=== PATIENT | female | born 1950 | race African-American/Black ===

== ENCOUNTER 2020-05-10 15:03 | Observation (INO) ==
[2020-05-10 16:52] LABS: Basophils # 0.1 10*3/uL (0.0-0.2); Basophils % 0.5 % (0.0-0.8); Eosinophils # 0.5 10*3/uL (0.0-0.87); Eosinophils % 4.8 % (0.00-10.9); Hematocrit 37.4 VOL% (35.7-47.0); Hemoglobin 12.5 GM/DL (12.0-16.0); Immature Granulocytes % 0.3 %; Immature Granulocytes Absolute 0.03 #; Lymphocytes # 1.9 10*3/uL (1.4-4.0); Lymphocytes % 18.6 % (21.3-54.2); Mean Corpuscular HGB Conc 33.4 GM/DL (32-36); Mean Platelet Volume 11.4 FL (9.6-12.0); Neutrophils % 65.8 % (38.7-73.9); Platelet Count 283 T/CUMM (130-400); Red Blood Count 4.45 MC/CUMM (3.8-5.5); Red Cell Distribution Width 14.3 % (9.3-17.3); White Blood Count 10.1 T/CUMM (4-12)
[2020-05-10 16:57] LABS: Alanine Aminotransferase 27 U/L (13-56); Alkaline Phosphatase 131 U/L (45-117); Aspartate Amino Transferase 22 U/L (0-37); Bilirubin,Total < 0.39 MG/DL (0.2-1.0); Blood Urea Nitrogen 21 MG/DL (7-18); Calcium 9.5 MG/DL (8.5-10.1); Estimated Glom Filtration Rate 44 ML/MIN; Glucose 95 MG/DL (74-106); Osmolality,Calculated 277.7 MOS/KG (273-304); Total Protein 8.6 G/DL (6.4-8.3)
[2020-05-10] MEDS ORDERED: LORazepam 2 MG/1 ML VIAL IV STA (17:38)
[2020-05-10] MEDS ORDERED: levETIRAcetam 500 MG/5 ML VIAL IV ONE (18:31)
[2020-05-10 18:36] LABS: Apearance,Urine CLEAR (Clear); Bilirubin,Urine Negative (Negative); Blood, Urine Negative (Negative); Glucose,Urine (UA) Negative (Negative); Ketones,Urine Negative (Negative); Mucus,Urine Occasional /LPF (Occasional); Nitrite,Urine Negative (Negative); Protein,Urine Negative; RBC,Urine 2 /HPF (0-4); Squamous Epithelial Cell,Urine Occasional /HPF (0-10); Urine Color Yellow (Yellow); Urine Specific Gravity 1.012 (1.001-1.035); Urine Urobilinogen < 2.0 EU/DL (0.2-1.0); WBC,Urine 44 /HPF (0-6)
[2020-05-10 18:41] LABS: Barbiturates Screen,Urine Negative (Negative); Benzodiazepines Screen,Urine Negative (Negative); Cannabinoid Screen,Urine Negative (Negative); Opiate Screen,Urine Negative (Negative); Phencyclidine Screen,Urine Negative (Negative)
[2020-05-10] MEDS ORDERED: SULFAMETHOX/TRIMETHOPRIM 800-160 MG TABLET PO STA (19:01)
[2020-05-10] MEDS ORDERED: ONDANSETRON 4 MG/2 ML VIAL IV PRN (19:29)
[2020-05-10] MEDS ORDERED: ASPIRIN EC 325 MG TABLET PO PRN (19:35)
[2020-05-10] MEDS ORDERED: CLOPIDOGREL 75 MG TABLET PO STA (19:36)
[2020-05-10] MEDS ORDERED: ENOXAPARIN 40 MG/0.4 ML SYRINGE SUBCUT SCH (21:00)
[2020-05-10] MEDS: levETIRAcetam 500 MG TABLET PO SCH (21:00)
[2020-05-10] MEDS: SODIUM CHLORIDE 0.9% 1,000 ML IV SCH (22:39)
[2020-05-10] MEDS: ASCORBIC ACID 500 MG TABLET PO SCH (22:39)
[2020-05-11] MEDS: SODIUM CHLORIDE 0.9% 1,000 ML IV SCH ×3 (04:35→16:25)
[2020-05-11 05:55] LABS: Basophils # 0.1 10*3/uL (0.0-0.2); Basophils % 0.6 % (0.0-0.8); Eosinophils # 0.5 10*3/uL (0.0-0.87); Eosinophils % 5.6 % (0.00-10.9); Hematocrit 35.4 VOL% (35.7-47.0); Hemoglobin 11.7 GM/DL (12.0-16.0); Immature Granulocytes % 0.4 %; Immature Granulocytes Absolute 0.03 #; Lymphocytes # 2.3 10*3/uL (1.4-4.0); Mean Corpuscular HGB Conc 33.1 GM/DL (32-36); Mean Corpuscular Volume 85.9 FL (87-102); Monocytes % 12.1 % (1.7-12.7); Neutrophils % 54.3 % (38.7-73.9); Platelet Count 259 T/CUMM (130-400); Red Blood Count 4.12 MC/CUMM (3.8-5.5); Red Cell Distribution Width 14.4 % (9.3-17.3); White Blood Count 8.3 T/CUMM (4-12)
[2020-05-11 06:15] LABS: Calcium 8.8 MG/DL (8.5-10.1); Osmolality,Calculated 283.1 MOS/KG (273-304); Risk Ratio 2.07; VLDL CHOLESTEROL 17.6 MG/DL
[2020-05-11] MEDS: SULFAMETHOX/TRIMETHOPRIM 800-160 MG TABLET PO SCH (08:14)
[2020-05-11] MEDS: levETIRAcetam 500 MG TABLET PO SCH ×2 (08:14→21:53)
[2020-05-11] MEDS: ROSUVASTATIN 10 MG TABLET PO SCH (08:14)
[2020-05-11] MEDS: amLODIPine 10 MG TABLET PO SCH (08:14)
[2020-05-11] MEDS: FOLIC ACID 1 MG TABLET PO SCH (08:14)
[2020-05-11] MEDS: CHOLECALCIFEROL 1,000 UNIT TABLET PO SCH (08:15)
[2020-05-11] MEDS: ASCORBIC ACID 500 MG TABLET PO SCH (21:53)
[2020-05-12] MEDS: SODIUM CHLORIDE 0.9% 1,000 ML IV SCH ×2 (04:51→08:51)
[2020-05-12 08:14] LABS: Calcium 8.3 MG/DL (8.5-10.1); Osmolality,Calculated 281.3 MOS/KG (273-304)
[2020-05-12] MEDS: CHOLECALCIFEROL 1,000 UNIT TABLET PO SCH (08:50)
[2020-05-12] MEDS: SULFAMETHOX/TRIMETHOPRIM 800-160 MG TABLET PO SCH (08:50)
[2020-05-12] MEDS: FOLIC ACID 1 MG TABLET PO SCH (08:50)
[2020-05-12] MEDS: levETIRAcetam 500 MG TABLET PO SCH (08:50)
[2020-05-12] MEDS: ROSUVASTATIN 10 MG TABLET PO SCH (08:50)
[2020-05-12] MEDS: amLODIPine 10 MG TABLET PO SCH (08:50)
[2020-05-12] MEDS ORDERED: CLOPIDOGREL 75 MG TABLET PO SCH (09:00)
[2020-05-12] MEDS ORDERED: ROSUVASTATIN 20 MG TABLET PO SCH (10:10)
[2020-05-12 12:07] VITALS: BP 133/60
[2020-05-13] MEDS ORDERED: ASPIRIN EC 81 MG TABLET PO SCH (09:00)
== END 2020-05-12 12:30 | disposition home or self-care (01) ==
LOC: N.EDINP 15:03 → N.ED 15:03 → N.EDINP 21:21 → N.TELES 22:32
PROVIDERS: ADMIT Family Medicine; ATTEND Family Medicine

== ENCOUNTER 2020-07-27 06:26 | Observation (INO) ==
[2020-07-27] MEDS ORDERED: LORazepam 2 MG/1 ML VIAL IV STA ×2 (06:38→07:57)
[2020-07-27 06:55] LABS: Basophils # 0.1 10*3/uL (0.0-0.2); Basophils % 0.8 % (0.0-0.8); Eosinophils # 0.5 10*3/uL (0.0-0.87); Eosinophils % 6.3 % (0.00-10.9); Hemoglobin 12.5 GM/DL (12.0-16.0); Immature Granulocytes % 0.3 %; Immature Granulocytes Absolute 0.02 #; Lymphocytes # 3.1 10*3/uL (1.4-4.0); Lymphocytes % 39.9 % (21.3-54.2); Mean Corpuscular HGB Conc 33.8 GM/DL (32-36); Mean Corpuscular Volume 85.5 FL (87-102); Mean Platelet Volume 11.1 FL (9.6-12.0); Monocytes % 15.7 % (1.7-12.7); Platelet Count 217 T/CUMM (130-400); Red Blood Count 4.33 MC/CUMM (3.8-5.5); Red Cell Distribution Width 15.3 % (9.3-17.3); White Blood Count 7.8 T/CUMM (4-12)
[2020-07-27 07:18] LABS: Eosinophils 8 % (0-10); Lymphocytes 34 % (20-55); Platelet Estimate Adequate; Segmented Neutrophils 44 % (50-85); Total Cells Counted 100
[2020-07-27 07:19] LABS: Hypochromasia 1+; Microcytosis 1+
[2020-07-27 07:24] LABS: Albumin 3.6 G/DL (3.4-5.0); Bilirubin,Total 0.7 MG/DL (0.2-1.0); Calcium 8.8 MG/DL (8.5-10.1); Osmolality,Calculated 285.1 MOS/KG (273-304)
[2020-07-27] MEDS ORDERED: MORPHINE 4 MG/1 ML VIAL IV PRN (09:13)
[2020-07-27] MEDS ORDERED: hydrALAZINE 20 MG/1 ML VIAL IV PRN (09:13)
[2020-07-27] MEDS ORDERED: GLUCAGON 1 MG VIAL IM PRN (09:13)
[2020-07-27] MEDS ORDERED: DOCUSATE SODIUM 100 MG CAPSULE PO PRN (09:13)
[2020-07-27] MEDS ORDERED: DEXTROSE 50% 25 GM/50 ML VIAL IV PRN (09:13)
[2020-07-27] MEDS ORDERED: ONDANSETRON 4 MG/2 ML VIAL IV PRN (09:13)
[2020-07-27] MEDS ORDERED: BISACODYL 5 MG TABLET PO PRN (09:13)
[2020-07-27] MEDS ORDERED: ACETAMINOPHEN 325 MG TABLET PO PRN (09:13)
[2020-07-27] MEDS ORDERED: LORazepam 2 MG/1 ML VIAL IV PRN (09:19)
[2020-07-27] MEDS: SODIUM CHLORIDE 0.9% 1,000 ML IV SCH ×3 (11:00→20:50)
[2020-07-27] MEDS: ENOXAPARIN 40 MG/0.4 ML SYRINGE SUBCUT SCH (15:45)
[2020-07-27] MEDS: LOSARTAN 25 MG TABLET PO SCH (20:50)
[2020-07-27] MEDS: DIVALPROEX 500 MG TABLET PO SCH (20:50)
[2020-07-27] MEDS ORDERED: ROSUVASTATIN 20 MG TABLET PO SCH (21:00)
[2020-07-28] MEDS: SODIUM CHLORIDE 0.9% 1,000 ML IV SCH ×4 (04:00→22:10)
[2020-07-28 05:33] LABS: Basophils % 0.6 % (0.0-0.8); Eosinophils # 0.4 10*3/uL (0.0-0.87); Eosinophils % 5.6 % (0.00-10.9); Hematocrit 33.1 VOL% (35.7-47.0); Hemoglobin 11.1 GM/DL (12.0-16.0); Immature Granulocytes % 0.3 %; Immature Granulocytes Absolute 0.02 #; Lymphocytes # 2.1 10*3/uL (1.4-4.0); Lymphocytes % 30.4 % (21.3-54.2); Mean Corpuscular HGB Conc 33.5 GM/DL (32-36); Mean Corpuscular Volume 86.4 FL (87-102); Mean Platelet Volume 11.4 FL (9.6-12.0); Monocytes % 16.9 % (1.7-12.7); Neutrophils % 46.2 % (38.7-73.9); Platelet Count 186 T/CUMM (130-400); Red Blood Count 3.83 MC/CUMM (3.8-5.5); Red Cell Distribution Width 15.5 % (9.3-17.3); White Blood Count 6.8 T/CUMM (4-12)
[2020-07-28 06:00] LABS: Albumin 3.1 G/DL (3.4-5.0); Bilirubin,Total 0.8 MG/DL (0.2-1.0); Calcium 8.4 MG/DL (8.5-10.1); Osmolality,Calculated 284.1 MOS/KG (273-304); Risk Ratio 2.58; Thyroid Stimulating Hormone 3.76 uIU/ml (0.358-3.74); Total Protein 7.1 G/DL (6.4-8.3); VLDL CHOLESTEROL 19.2 MG/DL
[2020-07-28 06:08] LABS: Eosinophils 3 % (0-10); Lymphocytes 35 % (20-55); Platelet Estimate Normal; Segmented Neutrophils 44 % (50-85); Total Cells Counted 100
[2020-07-28] MEDS: CLOPIDOGREL 75 MG TABLET PO SCH (08:22)
[2020-07-28] MEDS: DIVALPROEX 500 MG TABLET PO SCH ×2 (08:22→20:51)
[2020-07-28] MEDS: amLODIPine 10 MG TABLET PO SCH (08:22)
[2020-07-28] MEDS: PANTOPRAZOLE 40 MG TABLET PO SCH (08:23)
[2020-07-28] MEDS: ASPIRIN CHEW 81 MG TABLET PO SCH (08:23)
[2020-07-28] MEDS: ENOXAPARIN 40 MG/0.4 ML SYRINGE SUBCUT SCH (10:31)
[2020-07-28] MEDS: OXcarbazepine 300 MG TABLET PO SCH ×2 (10:31→20:51)
[2020-07-28] MEDS: LOSARTAN 25 MG TABLET PO SCH (20:51)
[2020-07-28] MEDS ORDERED: MELATONIN 3 MG TABLET PO SCH (21:00)
[2020-07-29 05:50] LABS: Basophils # 0.1 10*3/uL (0.0-0.2); Basophils % 0.8 % (0.0-0.8); Eosinophils # 0.7 10*3/uL (0.0-0.87); Hematocrit 30.5 VOL% (35.7-47.0); Hemoglobin 10.2 GM/DL (12.0-16.0); Immature Granulocytes % 0.4 %; Immature Granulocytes Absolute 0.03 #; Lymphocytes # 1.8 10*3/uL (1.4-4.0); Lymphocytes % 24.4 % (21.3-54.2); Mean Corpuscular HGB Conc 33.4 GM/DL (32-36); Mean Corpuscular Volume 86.6 FL (87-102); Monocytes % 14.5 % (1.7-12.7); Neutrophils % 50.9 % (38.7-73.9); Platelet Count 161 T/CUMM (130-400); Red Blood Count 3.52 MC/CUMM (3.8-5.5); Red Cell Distribution Width 15.5 % (9.3-17.3); White Blood Count 7.4 T/CUMM (4-12)
[2020-07-29 06:08] LABS: Albumin 2.8 G/DL (3.4-5.0); Bilirubin,Total 0.4 MG/DL (0.2-1.0); Osmolality,Calculated 288.1 MOS/KG (273-304); Total Protein 6.4 G/DL (6.4-8.3)
[2020-07-29] MEDS: CLOPIDOGREL 75 MG TABLET PO SCH (09:54)
[2020-07-29] MEDS: ASPIRIN CHEW 81 MG TABLET PO SCH (09:54)
[2020-07-29] MEDS: DIVALPROEX 500 MG TABLET PO SCH (09:54)
[2020-07-29] MEDS: amLODIPine 10 MG TABLET PO SCH (09:54)
[2020-07-29] MEDS: PANTOPRAZOLE 40 MG TABLET PO SCH (09:55)
[2020-07-29] MEDS: OXcarbazepine 300 MG TABLET PO SCH (09:55)
[2020-07-29] MEDS: ENOXAPARIN 40 MG/0.4 ML SYRINGE SUBCUT SCH (09:55)
[2020-07-29 15:44] VITALS: BP 145/75
== END 2020-07-29 16:15 | disposition home or self-care (01) ==
LOC: N.EDINP 06:26 → N.ED 06:26 → N.3E 14:18
PROVIDERS: ADMIT Internal Medicine; ATTEND Internal Medicine

== ENCOUNTER 2020-08-15 06:39 | Inpatient (IN) ==
[2020-08-09 11:27] LABS: Basophils % 0.5 % (0.0-0.8); Eosinophils # 0.6 10*3/uL (0.0-0.87); Eosinophils % 7.9 % (0.00-10.9); Hematocrit 34.4 VOL% (35.7-47.0); Hemoglobin 11.6 GM/DL (12.0-16.0); Immature Granulocytes % 0.4 %; Immature Granulocytes Absolute 0.03 #; Lymphocytes # 1.3 10*3/uL (1.4-4.0); Lymphocytes % 17.3 % (21.3-54.2); Mean Corpuscular HGB Conc 33.7 GM/DL (32-36); Mean Platelet Volume 11.7 FL (9.6-12.0); Monocytes % 19.3 % (1.7-12.7); Neutrophils % 54.6 % (38.7-73.9); Platelet Count 234 T/CUMM (130-400); Red Cell Distribution Width 16.1 % (9.3-17.3); White Blood Count 7.6 T/CUMM (4-12)
[2020-08-09 11:36] LABS: Calcium 8.5 MG/DL (8.5-10.1); Osmolality,Calculated 279.8 MOS/KG (273-304)
[2020-08-09 11:53] LABS: Band Neutrophils 1 % (0-10); Eosinophils 7 % (0-10); Hypochromasia 1+; Lymphocytes 14 % (20-55); Microcytosis Slight; Platelet Estimate Adequate; Segmented Neutrophils 66 % (50-85); Total Cells Counted 100
[~2020-08-15 06:39] MED LIST: ceFAZolin 1,000 MG in SYRINGE 1 EACH IV ONE
[2020-08-15] MEDS ORDERED: DIAZEPAM 5 MG TABLET PO ONE (06:50)
[2020-08-15] MEDS ORDERED: FAMOTIDINE 20 MG TABLET PO ONE (06:50)
[2020-08-15 07:28] LABS: PT Patient Result 10.9 SECS (9.8-11.9)
[2020-08-15] MEDS ORDERED: LACTATED RINGERS 1,000 ML IV SCH (08:00)
[2020-08-15] MEDS ORDERED: fentaNYL 100 MCG/2 ML VIAL ONE ×2 (08:28→10:41)
[2020-08-15] MEDS ORDERED: HEPARIN 5,000 UNIT/1 ML VIAL ONE (08:29)
[2020-08-15] MEDS ORDERED: LIDOCAINE 1% 20 ML VIAL ONE (08:30)
[2020-08-15] MEDS ORDERED: PHENYLEPHRINE 10 MG/1 ML VIAL IV ONE (08:34)
[2020-08-15] MEDS ORDERED: ROPIVACAINE 0.5% 30 ML VIAL ONE (08:40)
[2020-08-15] MEDS ORDERED: LIDOCAINE 2% 5 ML VIAL ONE (10:17)
[2020-08-15] MEDS ORDERED: ONDANSETRON 4 MG/2 ML VIAL ONE (10:17)
[2020-08-15] MEDS ORDERED: DEXAMETHASONE 4 MG/1 ML VIAL ONE (10:17)
[2020-08-15] MEDS ORDERED: SODIUM CHLORIDE 0.9% 1,000 ML IV ONE (10:17)
[2020-08-15] MEDS ORDERED: SODIUM CHLORIDE 0.9% 100 ML IV ONE (10:17)
[2020-08-15] MEDS ORDERED: propofoL 200 MG/20 ML VIAL IV ONE (10:17)
[2020-08-15] MEDS ORDERED: HEPARIN 10,000 UNIT/10 ML VIAL ONE (10:17)
[2020-08-15] MEDS ORDERED: ROCURONIUM 50 MG/5 ML VIAL IV ONE (10:17)
[2020-08-15] MEDS ORDERED: SUCCINYLCHOLINE 200 MG/10 ML VIAL ONE (10:17)
[2020-08-15] MEDS ORDERED: ETOMIDATE 40 MG/20 ML VIAL IV ONE (10:17)
[2020-08-15] MEDS ORDERED: PHENYLEPHRINE 1 MG/10 ML SYRINGE IV ONE (10:18)
[2020-08-15] MEDS ORDERED: NEOSTIGMINE 10 MG/10 ML VIAL ONE (10:33)
[2020-08-15] MEDS ORDERED: PROTAMINE SULFATE 50 MG/5 ML VIAL IV ONE (10:33)
[2020-08-15] MEDS ORDERED: GLYCOPYRROLATE 0.4 MG/2 ML VIAL ONE (10:33)
[2020-08-15] MEDS ORDERED: SEVOFLURANE 1 UNIT/15 MINUTE INH ONE (10:37)
[2020-08-15] MEDS ORDERED: PROMETHAZINE 25 MG/1 ML VIAL IM PRN (10:53)
[2020-08-15] MEDS ORDERED: ONDANSETRON 4 MG/2 ML VIAL IV PRN (10:53)
[2020-08-15] MEDS ORDERED: GLUCAGON 1 MG VIAL IM PRN (10:53)
[2020-08-15] MEDS ORDERED: HYDROmorphone 2 MG/1 ML VIAL IV PRN (10:53)
[2020-08-15] MEDS ORDERED: NALOXONE 0.4 MG/ML VIAL IV PRN (10:53)
[2020-08-15] MEDS ORDERED: oxyCODONE/ACETAMINOPHEN 5-325 MG TABLET PO PRN ×2 (10:53)
[2020-08-15] MEDS ORDERED: DEXTROSE 50% 25 GM/50 ML VIAL IV PRN (10:53)
[2020-08-15] MEDS ORDERED: PHENYLEPHRINE DRIP 40 MG/250 ML PREMIX IV SCH (11:00)
[2020-08-15] MEDS ORDERED: NITROPRUSSIDE 100 MG in DEXTROSE 5% 250 ML IV SCH (11:00)
[2020-08-15 12:25] VITALS: BP 117/42
[2020-08-15] MEDS: LACTATED RINGERS 1,000 ML IV SCH ×2 (12:36→16:00)
[2020-08-15] MEDS: HYDROmorphone 2 MG/1 ML VIAL IV PRN ×2 (12:47→22:35)
[2020-08-15] MEDS: OXcarbazepine 300 MG TABLET PO SCH (20:40)
[2020-08-15] MEDS: DIVALPROEX 500 MG TABLET PO SCH (20:40)
[2020-08-15] MEDS: levETIRAcetam 500 MG TABLET PO SCH (20:41)
[2020-08-15] MEDS ORDERED: LOSARTAN 25 MG TABLET PO SCH (21:00)
[2020-08-15] MEDS ORDERED: MELATONIN 3 MG TABLET PO SCH (21:00)
[2020-08-16] MEDS: LACTATED RINGERS 1,000 ML IV SCH (03:00)
[2020-08-16] MEDS: DIVALPROEX 500 MG TABLET PO SCH (08:08)
[2020-08-16] MEDS: levETIRAcetam 500 MG TABLET PO SCH (08:08)
[2020-08-16] MEDS: OXcarbazepine 300 MG TABLET PO SCH (08:20)
[2020-08-16] MEDS ORDERED: ASPIRIN CHEW 81 MG TABLET PO SCH (09:00)
[2020-08-16] MEDS ORDERED: ASPIRIN EC 81 MG TABLET PO SCH (09:00)
[2020-08-16] MEDS ORDERED: CLOPIDOGREL 75 MG TABLET PO SCH ×2 (09:00)
[2020-08-16] MEDS ORDERED: ROSUVASTATIN 20 MG TABLET PO SCH (09:00)
== END 2020-08-16 09:58 | disposition home or self-care (01) | DRG 38 ==
LOC: N.OR 06:39 → N.SDSINP 06:41 → EDSTATUS 09:30 → N.SDSINP 10:53 → N.ICU 12:02
PROVIDERS: ADMIT Surgery; ATTEND Surgery

== ENCOUNTER 2022-01-01 12:58 | Observation (INO) ==
[2022-01-01] MEDS ORDERED: SODIUM CHLORIDE 0.9% 1,000 ML IV STA (13:49)
[2022-01-01 14:59] LABS: Basophils % 0.4 % (0.0-0.8); Eosinophils # 0.6 10*3/uL (0.0-0.87); Eosinophils % 6.8 % (0.00-10.9); Hematocrit 33.2 VOL% (35.7-47.0); Hemoglobin 10.5 GM/DL (12.0-16.0); Immature Granulocytes % 1.5 %; Immature Granulocytes Absolute 0.14 #; Lymphocytes # 1.2 10*3/uL (1.4-4.0); Lymphocytes % 12.9 % (21.3-54.2); Mean Corpuscular HGB Conc 31.6 GM/DL (32-36); Mean Corpuscular Volume 93.3 FL (87-102); Mean Platelet Volume 11.5 FL (9.6-12.0); Neutrophils % 58.4 % (38.7-73.9); Platelet Count 291 T/CUMM (130-400); Red Blood Count 3.56 MC/CUMM (3.8-5.5); White Blood Count 9.2 T/CUMM (4-12)
[2022-01-01 15:12] LABS: Hyaline Casts,Urine 7 /LPF (0-3); RBC,Urine 1 /HPF (0-4); Squamous Epithelial Cell,Urine Occasional /HPF (0-10); Urine Appearance Clear (Clear); Urine Color Yellow (Yellow)
[2022-01-01 15:13] LABS: Bilirubin,Urine Moderate mg/dL (Negative); Blood, Urine Negative (Negative); Glucose,Urine (UA) Negative (Negative); Ketones,Urine Negative (Negative); Nitrite,Urine Negative (Negative); Protein,Urine 30 mg/dL (Negative); Urine Specific Gravity 1.015 (1.001-1.035); Urine pH 6.5 (4.5-8.0)
[2022-01-01 15:41] LABS: Albumin 2.5 G/DL (3.4-5.0); Bilirubin,Total 0.4 MG/DL (0.20-1.00); Calcium 9.1 MG/DL (8.5-10.1); Potassium 4.5 MMOL/L (3.5-5.1); Total Protein 7.1 G/DL (6.4-8.2)
[2022-01-01 15:46] LABS: Eosinophils 13 % (0-10); Lymphocytes 12 % (20-55); Metamyelocytes 1 %; Segmented Neutrophils 57 % (50-85); Total Cells Counted 100
[2022-01-01 15:47] LABS: Atypical Lymphocytes Few; Microcytosis Slight
[2022-01-01 16:30] LABS: Barbiturates Screen,Urine Negative (Negative); Benzodiazepines Screen,Urine Positive (Negative); Cannabinoid Screen,Urine Negative (Negative); Opiate Screen,Urine Negative (Negative); Phencyclidine Screen,Urine Negative (Negative)
[2022-01-01] MEDS ORDERED: ACETAMINOPHEN 325 MG TABLET PO PRN (17:53)
[2022-01-01] MEDS ORDERED: ALBUTEROL 2.5 MG/3 ML NEB RESP TX PRN (17:53)
[2022-01-01] MEDS ORDERED: hydrALAZINE 20 MG/1 ML VIAL IV PRN (17:53)
[2022-01-01] MEDS ORDERED: GLUCAGON 1 MG VIAL IM PRN (17:53)
[2022-01-01] MEDS ORDERED: ONDANSETRON 4 MG/2 ML VIAL IV PRN (17:53)
[2022-01-01] MEDS ORDERED: ENOXAPARIN 30 MG/0.3 ML SYRINGE SUBCUT SCH (18:00)
[2022-01-01] MEDS ORDERED: DEXTROSE 10% 250 ML BAG IV PRN (18:11)
[2022-01-01] MEDS ORDERED: cefTRIAXone 1,000 MG in SODIUM CHLORIDE 0.9% 100 ML IV SCH (18:30)
[2022-01-01] MEDS: SODIUM CHLORIDE 0.45% 1,000 ML IV SCH (20:41)
[2022-01-01] MEDS ORDERED: ROSUVASTATIN 20 MG TABLET PO SCH (21:00)
[2022-01-01] MEDS ORDERED: traZODone 50 MG TABLET PO SCH (21:00)
[2022-01-01] MEDS: OXcarbazepine 300 MG TABLET PO SCH (23:44)
[2022-01-01] MEDS: DIVALPROEX 250 MG TABLET PO SCH (23:45)
[2022-01-02] MEDS: SODIUM CHLORIDE 0.45% 1,000 ML IV SCH ×3 (02:00→20:17)
[2022-01-02 05:25] LABS: Basophils # 0.1 10*3/uL (0.0-0.2); Basophils % 0.6 % (0.0-0.8); Eosinophils # 0.6 10*3/uL (0.0-0.87); Eosinophils % 7.8 % (0.00-10.9); Hematocrit 29.3 VOL% (35.7-47.0); Hemoglobin 9.1 GM/DL (12.0-16.0); Immature Granulocytes % 0.9 %; Immature Granulocytes Absolute 0.07 #; Lymphocytes # 1.1 10*3/uL (1.4-4.0); Lymphocytes % 13.9 % (21.3-54.2); Mean Corpuscular HGB Conc 31.1 GM/DL (32-36); Mean Corpuscular Volume 92.4 FL (87-102); Mean Platelet Volume 12.1 FL (9.6-12.0); Monocytes % 20.3 % (1.7-12.7); Neutrophils % 56.5 % (38.7-73.9); Platelet Count 273 T/CUMM (130-400); Red Blood Count 3.17 MC/CUMM (3.8-5.5); Red Cell Distribution Width 17.8 % (9.3-17.3); White Blood Count 7.8 T/CUMM (4-12)
[2022-01-02 05:52] LABS: Eosinophils 9 % (0-10); Hypochromia Slight; Lymphocytes 14 % (20-55); Microcytosis Slight; Nucleated Red Blood Cells 1 (0-5); Platelet Estimate Adequate; Segmented Neutrophils 58 % (50-85); Total Cells Counted 100
[2022-01-02 05:56] LABS: Alanine Aminotransferase 27 U/L (13-56); Albumin 2.2 G/DL (3.4-5.0); Alkaline Phosphatase 75 U/L (45-117); Aspartate Amino Transferase 25 U/L (0-37); Bilirubin,Total < 0.39 MG/DL (0.20-1.00); Blood Urea Nitrogen 29 MG/DL (7-18); Calcium 8.8 MG/DL (8.5-10.1); Carbon Dioxide 21 MMOL/L (21-32); Estimated Glom Filtration Rate 30 ML/MIN; Glucose 71 MG/DL (74-106); HDL Cholesterol 50 MG/DL (40-60); Osmolality,Calculated 299.1 MOS/KG (273-304); Potassium 3.9 MMOL/L (3.5-5.1); Risk Ratio 2.38; Sodium 149 MMOL/L (136-145); Total Protein 6.5 G/DL (6.4-8.2); Triglycerides 116 MG/DL (2-150); VLDL Cholesterol 23.2 MG/DL
[2022-01-02] MEDS ORDERED: MIRTAZAPINE 15 MG TABLET PO SCH (09:00)
[2022-01-02] MEDS ORDERED: amLODIPine 10 MG TABLET PO SCH (09:00)
[2022-01-02] MEDS ORDERED: PANTOPRAZOLE 40 MG TABLET PO SCH (09:00)
[2022-01-02] MEDS ORDERED: ASPIRIN CHEW 81 MG TABLET PO SCH (09:00)
[2022-01-02] MEDS ORDERED: OLANZapine 5 MG TABLET PO SCH (09:00)
[2022-01-02] MEDS: OXcarbazepine 300 MG TABLET PO SCH (09:56)
[2022-01-02] MEDS: DIVALPROEX 250 MG TABLET PO SCH (09:56)
[2022-01-02 16:13] VITALS: BP 131/47
== END 2022-01-02 17:46 | disposition home or self-care (01) ==
LOC: N.ED 12:58 → N.EDINP 12:58 → N.5E 19:55
PROVIDERS: ADMIT Internal Medicine; ATTEND Internal Medicine

== ENCOUNTER 2022-03-23 13:15 | Inpatient (IN) ==
[2022-03-23] MEDS ORDERED: SODIUM CHLORIDE 0.9% 500 ML IV STA (14:08)
[2022-03-23 14:46] LABS: Basophils % 0.3 % (0.0-0.8); Eosinophils # 0.5 10*3/uL (0.0-0.87); Eosinophils % 4.2 % (0.00-10.9); Hematocrit 31.7 VOL% (35.7-47.0); Hemoglobin 9.7 GM/DL (12.0-16.0); Immature Granulocytes % 1.5 %; Immature Granulocytes Absolute 0.18 #; Lymphocytes # 1.6 10*3/uL (1.4-4.0); Lymphocytes % 13.5 % (21.3-54.2); Mean Corpuscular HGB Conc 30.6 GM/DL (32-36); Mean Corpuscular Volume 97.2 FL (87-102); Mean Platelet Volume 12.9 FL (9.6-12.0); Monocytes # 2.3 10*3/uL (0.11-0.8); Monocytes % 19.3 % (1.7-12.7); NRBC # 0.06 10*3/uL; Neutrophils % 61.2 % (38.7-73.9); Platelet Count 190 T/CUMM (130-400); Red Blood Count 3.26 MC/CUMM (3.8-5.5); Red Cell Distribution Width 20.4 % (9.3-17.3); White Blood Count 11.8 T/CUMM (4-12)
[2022-03-23 14:57] LABS: Albumin 2.5 G/DL (3.4-5.0); Bilirubin,Total 1.4 MG/DL (0.20-1.00); Calcium 9.7 MG/DL (8.5-10.1); Osmolality,Calculated 343.2 MOS/KG (273-304); Potassium 5.2 MMOL/L (3.5-5.1); Total Protein 6.7 G/DL (6.4-8.2)
[2022-03-23] MEDS ORDERED: cefTRIAXone 1,000 MG in SODIUM CHLORIDE 0.9% 100 ML IV STA (15:00)
[2022-03-23 15:14] LABS: Band Neutrophils 4 % (0-10); Lymphocytes 18 % (20-55); Nucleated Red Blood Cells 2 (0-5); Platelet Estimate Adequate; Total Cells Counted 100
[2022-03-23 16:28] LABS: Bacteria,Urine Many /HPF (Few); Mucus,Urine Occasional /LPF (Occasional); Urine Appearance Clear (Clear); Urine Color Yellow (Yellow); Urine pH 5.5 (4.5-8.0)
[2022-03-23 16:29] LABS: Bilirubin,Urine Large mg/dL (Negative); Blood, Urine B mg/dL (Negative); Glucose,Urine (UA) Negative (Negative); Ketones,Urine Trace mg/dL (Negative); Nitrite,Urine Negative (Negative); Protein,Urine 30 mg/dL (Negative); Urine Urobilinogen 0.2 eU/dL (<2.0)
[2022-03-23] MEDS ORDERED: SODIUM CHLORIDE 0.45% IV ONE (16:56)
[2022-03-23] MEDS ORDERED: GLUCAGON 1 MG VIAL IM PRN (17:26)
[2022-03-23] MEDS ORDERED: ONDANSETRON 4 MG/2 ML VIAL IV PRN (17:26)
[2022-03-23] MEDS ORDERED: ALBUTEROL/IPRATROPIUM 3 ML NEB RESP TX PRN (17:26)
[2022-03-23] MEDS ORDERED: DEXTROSE 10% 250 ML BAG IV PRN (17:32)
[2022-03-23] MEDS ORDERED: LORazepam 1 MG TABLET PEG PRN (18:00)
[2022-03-23] MEDS: SODIUM CHLORIDE 0.45% 1,000 ML IV SCH (18:41)
[2022-03-23 19:45] LABS: Calcium 9.1 MG/DL (8.5-10.1); Osmolality,Calculated 337.4 MOS/KG (273-304); Potassium 5.4 MMOL/L (3.5-5.1)
[2022-03-23] MEDS ORDERED: SODIUM CHLORIDE 0.45% 500 ML IV ONE (21:04)
[2022-03-23] MEDS ORDERED: SODIUM POLYSTYRENE SULFATE 15 GM/60 ML BOTTLE PO ONE (21:04)
[2022-03-23] MEDS ORDERED: INSULIN REGULAR 10 UNIT, CALCIUM GLUCONATE 1,000 MG in DEXTROSE 10% 250 ML IV ONE (21:04)
[2022-03-23] MEDS ORDERED: SODIUM BICARBONATE 50 MEQ/50 ML VIAL IV ONE (21:04)
[2022-03-23] MEDS: DOPamine 800 MG/250 ML PREMIX IV PRN (21:22)
[2022-03-23 21:41] LABS: Arterial Base Excess iSTAT 4 MMOL/L (-2.5-2.5); Arterial Bicarbonate iSTAT 29.3 MMOL/L (20-26); Arterial O2 Saturation iSTAT 89 % (95-100); Arterial PCO2 iSTAT 50 MM HG (35-48); Arterial PO2 iSTAT 59 MM HG (80-95); Arterial Total CO2 iSTAT 31 MMO/L (23-27); Arterial pH iSTAT 7.377 (7.35-7.45)
[2022-03-23] MEDS: ENOXAPARIN 30 MG/0.3 ML SYRINGE SUBCUT SCH (21:45)
[2022-03-23] MEDS: DIVALPROEX 500 MG TABLET PO SCH (21:45)
[2022-03-23] MEDS: OXcarbazepine 300 MG TABLET PEG SCH (21:45)
[2022-03-23] MEDS: DEXAMETHASONE 4 MG/1 ML VIAL IV SCH (21:45)
[2022-03-23] MEDS: FAMOTIDINE 20 MG/2 ML VIAL IV SCH (21:45)
[2022-03-24 00:55] LABS: Arterial Base Excess iSTAT 0 MMOL/L (-2.5-2.5); Arterial Bicarbonate iSTAT 25.9 MMOL/L (20-26); Arterial O2 Saturation iSTAT 90 % (95-100); Arterial PCO2 iSTAT 48 MM HG (35-48); Arterial PO2 iSTAT 63 MM HG (80-95); Arterial Total CO2 iSTAT 27 MMO/L (23-27); Arterial pH iSTAT 7.344 (7.35-7.45)
[2022-03-24 00:56] LABS: Albumin 2.2 G/DL (3.4-5.0); Calcium 9.2 MG/DL (8.5-10.1); Osmolality,Calculated 339.6 MOS/KG (273-304); Potassium 4.8 MMOL/L (3.5-5.1)
[2022-03-24] MEDS: SODIUM CHLORIDE 0.45% 1,000 ML IV SCH ×4 (01:42→19:15)
[2022-03-24] MEDS: DEXAMETHASONE 4 MG/1 ML VIAL IV SCH ×3 (02:37→18:16)
[2022-03-24 02:59] LABS: Basophils % 0.3 % (0.0-0.8); Eosinophils # 0.1 10*3/uL (0.0-0.87); Eosinophils % 0.8 % (0.00-10.9); Hematocrit 28.9 VOL% (35.7-47.0); Hemoglobin 8.5 GM/DL (12.0-16.0); Immature Granulocytes % 2.1 %; Immature Granulocytes Absolute 0.22 #; Lymphocytes % 9.7 % (21.3-54.2); Mean Corpuscular HGB Conc 29.4 GM/DL (32-36); Mean Platelet Volume 12.8 FL (9.6-12.0); Monocytes # 1.5 10*3/uL (0.11-0.8); Monocytes % 14.1 % (1.7-12.7); NRBC # 0.06 10*3/uL; Platelet Count 149 T/CUMM (130-400); Red Blood Count 2.86 MC/CUMM (3.8-5.5); Red Cell Distribution Width 20.3 % (9.3-17.3); White Blood Count 10.7 T/CUMM (4-12)
[2022-03-24 03:33] LABS: Eosinophils 1 % (0-10); Hypochromia Slight; Lymphocytes 7 % (20-55); Nucleated Red Blood Cells 1 (0-5); Platelet Estimate Normal; Total Cells Counted 100
[2022-03-24 06:33] LABS: Albumin 1.8 G/DL (3.4-5.0); Bilirubin,Total 0.9 MG/DL (0.20-1.00); Calcium 8.7 MG/DL (8.5-10.1); Osmolality,Calculated 322.3 MOS/KG (273-304); Potassium 5.2 MMOL/L (3.5-5.1); Total Protein 6.7 G/DL (6.4-8.2)
[2022-03-24] MEDS: OLANZapine 5 MG TABLET PEG SCH (09:01)
[2022-03-24] MEDS: FAMOTIDINE 20 MG/2 ML VIAL IV SCH ×2 (09:01→21:56)
[2022-03-24] MEDS: OXcarbazepine 300 MG TABLET PEG SCH ×2 (09:02→21:56)
[2022-03-24] MEDS: DIVALPROEX 500 MG TABLET PO SCH ×2 (09:03→21:56)
[2022-03-24] MEDS: ALBUTEROL 2 MG TABLET PO SCH ×2 (11:32→18:16)
[2022-03-24 12:53] LABS: Calcium 8.7 MG/DL (8.5-10.1); Osmolality,Calculated 320.3 MOS/KG (273-304)
[2022-03-24] MEDS: cefTRIAXone 1,000 MG in SODIUM CHLORIDE 0.9% 100 ML IV SCH (14:45)
[2022-03-24] MEDS: ENOXAPARIN 30 MG/0.3 ML SYRINGE SUBCUT SCH (18:16)
[2022-03-25] MEDS: ALBUTEROL 2 MG TABLET PO SCH ×4 (00:35→17:06)
[2022-03-25] MEDS: DOPamine 800 MG/250 ML PREMIX IV PRN (01:22)
[2022-03-25] MEDS: SODIUM CHLORIDE 0.45% 1,000 ML IV SCH ×5 (02:00→20:42)
[2022-03-25] MEDS: DEXAMETHASONE 4 MG/1 ML VIAL IV SCH ×3 (02:32→17:06)
[2022-03-25] MEDS ORDERED: MORPHINE 2 MG/1 ML SYRINGE IV ONE (02:38)
[2022-03-25] MEDS ORDERED: MORPHINE 2 MG/1 ML SYRINGE IV PRN (04:06)
[2022-03-25 06:14] LABS: Basophils % 0.2 % (0.0-0.8); Eosinophils % 0.1 % (0.00-10.9); Hemoglobin 7.7 GM/DL (12.0-16.0); Immature Granulocytes % 5.4 %; Immature Granulocytes Absolute 0.72 #; Lymphocytes # 0.9 10*3/uL (1.4-4.0); Lymphocytes % 6.7 % (21.3-54.2); Mean Corpuscular HGB Conc 30.8 GM/DL (32-36); Mean Corpuscular Volume 96.5 FL (87-102); Mean Platelet Volume 12.4 FL (9.6-12.0); Monocytes # 0.9 10*3/uL (0.11-0.8); Monocytes % 6.7 % (1.7-12.7); NRBC # 0.09 10*3/uL; Neutrophils % 80.9 % (38.7-73.9); Platelet Count 153 T/CUMM (130-400); Red Blood Count 2.59 MC/CUMM (3.8-5.5); Red Cell Distribution Width 19.3 % (9.3-17.3); White Blood Count 13.2 T/CUMM (4-12)
[2022-03-25 06:35] LABS: Albumin 2.2 G/DL (3.4-5.0); Bilirubin,Total 0.5 MG/DL (0.20-1.00); Osmolality,Calculated 313.6 MOS/KG (273-304); Potassium 4.4 MMOL/L (3.5-5.1); Total Protein 6.6 G/DL (6.4-8.2)
[2022-03-25] MEDS: OXcarbazepine 300 MG TABLET PEG SCH ×2 (08:00→21:53)
[2022-03-25] MEDS: FAMOTIDINE 20 MG/2 ML VIAL IV SCH ×2 (08:00→21:53)
[2022-03-25] MEDS: OLANZapine 5 MG TABLET PEG SCH (08:00)
[2022-03-25] MEDS: DIVALPROEX 500 MG TABLET PO SCH ×2 (08:00→21:53)
[2022-03-25 09:00] LABS: Anisocytosis Slight; Band Neutrophils 18 % (0-10); Lymphocytes 8 % (20-55); Myelocytes 2 %; Platelet Estimate Normal; Total Cells Counted 100
[2022-03-25 09:01] LABS: Macrocytosis Slight
[2022-03-25] MEDS: cefTRIAXone 1,000 MG in SODIUM CHLORIDE 0.9% 100 ML IV SCH (17:05)
[2022-03-25] MEDS: ENOXAPARIN 30 MG/0.3 ML SYRINGE SUBCUT SCH (17:06)
[2022-03-25] MEDS: MORPHINE 2 MG/1 ML SYRINGE IV PRN (22:58)
[2022-03-26] MEDS: ALBUTEROL 2 MG TABLET PO SCH ×4 (00:57→19:26)
[2022-03-26] MEDS: DOPamine 800 MG/250 ML PREMIX IV PRN (01:41)
[2022-03-26] MEDS: SODIUM CHLORIDE 0.45% 1,000 ML IV SCH ×5 (02:00→22:45)
[2022-03-26] MEDS: DEXAMETHASONE 4 MG/1 ML VIAL IV SCH ×3 (02:39→19:26)
[2022-03-26] MEDS: DIAZEPAM 10 MG/2 ML SYRINGE IV PRN (02:40)
[2022-03-26] MEDS: DIVALPROEX 500 MG TABLET PO SCH ×2 (10:01→21:32)
[2022-03-26] MEDS: OLANZapine 5 MG TABLET PEG SCH (10:01)
[2022-03-26] MEDS: FAMOTIDINE 20 MG/2 ML VIAL IV SCH (10:02)
[2022-03-26] MEDS: OXcarbazepine 300 MG TABLET PEG SCH ×2 (10:02→21:32)
[2022-03-26] MEDS: cefTRIAXone 1,000 MG in SODIUM CHLORIDE 0.9% 100 ML IV SCH (14:48)
[2022-03-26] MEDS: MORPHINE 2 MG/1 ML SYRINGE IV PRN ×2 (18:32→19:27)
[2022-03-27] MEDS: DEXAMETHASONE 4 MG/1 ML VIAL IV SCH ×3 (01:00→18:40)
[2022-03-27] MEDS: ALBUTEROL 2 MG TABLET PO SCH ×4 (01:00→18:40)
[2022-03-27] MEDS: MORPHINE 2 MG/1 ML SYRINGE IV PRN ×3 (01:29→20:09)
[2022-03-27] MEDS: SODIUM CHLORIDE 0.45% 1,000 ML IV SCH ×4 (02:00→16:29)
[2022-03-27] MEDS: DIAZEPAM 10 MG/2 ML SYRINGE IV PRN ×2 (05:29→10:11)
[2022-03-27] MEDS: OXcarbazepine 300 MG TABLET PEG SCH ×2 (10:00→20:08)
[2022-03-27] MEDS: OLANZapine 5 MG TABLET PEG SCH (10:00)
[2022-03-27] MEDS: DIVALPROEX 500 MG TABLET PO SCH ×2 (10:00→20:09)
[2022-03-27] MEDS ORDERED: ZINC OXIDE PASTE 113 GM TUBE TOP PRN (14:00)
[2022-03-28] MEDS: DEXAMETHASONE 4 MG/1 ML VIAL IV SCH ×2 (02:40→09:12)
[2022-03-28] MEDS: ALBUTEROL 2 MG TABLET PO SCH ×2 (02:44→06:08)
[2022-03-28] MEDS ORDERED: LORazepam 1 MG TABLET PEG PRN (08:00)
[2022-03-28] MEDS: MORPHINE 2 MG/1 ML SYRINGE IV PRN ×2 (09:01→14:19)
[2022-03-28] MEDS: DIVALPROEX 500 MG TABLET PO SCH (09:02)
[2022-03-28] MEDS: OLANZapine 5 MG TABLET PEG SCH (09:02)
[2022-03-28] MEDS: OXcarbazepine 300 MG TABLET PEG SCH (09:07)
[2022-03-28 12:09] VITALS: BP 102/69
== END 2022-03-28 15:44 | disposition hospice, inpatient (51) | DRG 54 ==
LOC: EDUNIT# → EDBD → N.ED 13:15 → SUATTDRO 17:53 → N.EDINP 17:53 → N.CC 18:41 → N.5E 03-27 19:05
PROVIDERS: ADMIT Family Medicine; ATTEND Emergency Medicine

== ENCOUNTER 2022-03-28 15:50 | Inpatient (IN) ==
[2022-03-28] MEDS ORDERED: LORazepam 1 MG TABLET PO PRN (17:06)
[2022-03-28] MEDS ORDERED: DIAZEPAM 10 MG/2 ML SYRINGE IV PRN (17:06)
[2022-03-28] MEDS ORDERED: ALBUTEROL/IPRATROPIUM 3 ML NEB RESP TX PRN (17:06)
[2022-03-28] MEDS ORDERED: ONDANSETRON 4 MG/2 ML VIAL IV PRN (17:06)
[2022-03-28] MEDS ORDERED: ZINC OXIDE PASTE 113 GM TUBE TOP PRN (17:06)
[2022-03-28] MEDS ORDERED: MORPHINE 2 MG/1 ML SYRINGE IV PRN (17:06)
[2022-03-28] MEDS: ALBUTEROL 2.5 MG/3 ML NEB RESP TX SCH (19:57)
[2022-03-28] MEDS ORDERED: DIVALPROEX 500 MG TABLET PO SCH (21:00)
[2022-03-28] MEDS: OXcarbazepine 300 MG TABLET PO SCH (21:36)
[2022-03-29] MEDS: ALBUTEROL 2.5 MG/3 ML NEB RESP TX SCH (00:05)
[2022-03-29] MEDS: OXcarbazepine 300 MG TABLET PO SCH ×2 (08:42→20:36)
[2022-03-29] MEDS: VALPROIC ACID 250 MG/5 ML UDCUP PEG SCH ×2 (08:42→20:36)
[2022-03-29] MEDS: OLANZapine 5 MG TABLET PO SCH (08:42)
[2022-03-29] MEDS: HYDROmorphone 1 MG/1 ML SYRINGE IV PRN (17:00)
[2022-03-30] MEDS: OLANZapine 5 MG TABLET PO SCH (09:05)
[2022-03-30] MEDS: VALPROIC ACID 250 MG/5 ML UDCUP PEG SCH ×2 (09:05→20:10)
[2022-03-30] MEDS: OXcarbazepine 300 MG TABLET PO SCH ×2 (09:06→20:11)
[2022-03-30] MEDS: HYDROmorphone 1 MG/1 ML SYRINGE IV PRN ×2 (09:11→21:40)
[2022-03-31] MEDS: HYDROmorphone 1 MG/1 ML SYRINGE IV PRN (07:26)
[2022-03-31 09:15] VITALS: BP 98/62
[2022-03-31] MEDS: OXcarbazepine 300 MG TABLET PO SCH (10:14)
[2022-03-31] MEDS: OLANZapine 5 MG TABLET PO SCH (10:14)
[2022-03-31] MEDS: VALPROIC ACID 250 MG/5 ML UDCUP PEG SCH (10:14)
== END 2022-03-31 14:58 | disposition hospice, home (50) | DRG 951 ==
LOC: N.5E 15:50 → SUATTDRO 15:50
PROVIDERS: ADMIT Internal Medicine; ATTEND Internal Medicine Geriatric Medicine